=== PATIENT | male | born 1955 | race Two or more races ===

== ENCOUNTER 2023-01-25 07:56 | Inpatient (IN) | payer MEDICARE, OTHER ==
[~2023-01-25] VITALS: Ht 167.6 cm; Wt 66.4 kg
[2023-01-25 08:41] LABS: Basophils # (auto) 0 10 ^3/uL (0-0.2); Basophils % (auto) 0.6 % (0.0-2.0); Eosinophils # (auto) 0.1 10 ^3/uL (0-0.8); Eosinophils % (auto) 1.6 % (0.0-7.0); Hematocrit 50.8 % (41.0-53.0); Hemoglobin 16.7 g/dL (13.5-17.5); Lymphocytes # (auto) 1.1 10 ^3/uL (0.4-5.4); Lymphocytes % (auto) 17.3 % (10.0-50.0); Mean Corpuscular Hemoglobin 29.9 pg (28.0-32.0); Mean Corpuscular Hgb Conc. 32.9 g/dL (32.0-36.0); Mean Corpuscular Volume 90.8 fL (80.0-100.0); Monocytes # (auto) 0.3 10 ^3/uL (0-1.3); Monocytes % (auto) 5.4 % (0.0-12.0); Neutrophils # (auto) 4.8 10 ^3/uL (1.6-8.6); Neutrophils % (auto) 75.1 % (37.0-80.0); Nucleated Red Blood Cells % 0.1 %; Red Blood Cells 5.59 10^6/uL (4.5-5.90); Red Cell Distribution Width 16.7 % (11.8-14.3); White Blood Cell 6.4 10^3/uL (4.4-10.8)
[2023-01-25 08:57] LABS: Alanine Aminotransferase 24 U/L (7-40); Alkaline Phosphatase 82 U/L (46-116); Anion Gap 7.4 (5-15); Aspartate Aminotransferase 18 U/L (13-40); BUN/Creatinine Ratio 14.7 (10.0-20.0); Bilirubin, Total 0.7 mg/dL (0.2-1.0); Blood Urea Nitrogen 11 mg/dL (9-23); Calcium 9.3 mg/dL (8.5-10.1); Carbon Dioxide 25.6 mmol/L (20-30); Chloride 103 mmol/L (98-107); Glucose 212 mg/dL (74-106); Potassium 4.2 mmol/L (3.5-5.1); Sodium 136 mmol/L (136-145); Total Protein 6.5 g/dL (5.7-8.2)
[2023-01-25 09:25] LABS: Urine Bacteria NONE SEEN /hpf (None Seen); Urine Blood Negative /uL (Negative); Urine Clarity Clear (Clear); Urine Color Yellow (Yellow); Urine Mucus FEW (None Seen); Urine Protein, UAD Negative (Negative); Urine Specific Gravity 1.014 (1.001-1.035); Urine WBC 1 /hpf (0 - 3)
[2023-01-25] MEDS ORDERED: DEXTROSE (50%) 50ML SYRG IV PRN (14:30)
[2023-01-25] MEDS ORDERED: MORPHINE SULFATE INJ 2 MG/ml SYRG IV PRN (14:30)
[2023-01-25] MEDS ORDERED: NITROGLYCERIN 0.4 MG SL TAB SL PRN (14:30)
[2023-01-25 14:31] VITALS: PULSE 84; RESP 18; O2SAT 97
[2023-01-25 15:48] LABS: Amphetamine Screen, Urine Neg (NEGATIVE); Benzodiazephine Screen, Urine Neg (NEGATIVE)
[2023-01-25 15:49] LABS: Barbiturate Scree,Urine Neg (NEGATIVE); Cannabinoid Screen, Urine Pos (NEGATIVE); Cocaine Screen, Urine Neg (NEGATIVE); Opiate Scree,Urine Neg (NEGATIVE); Phencyclidine Screen, Urine Neg (NEGATIVE)
[2023-01-25] MEDS: ACCU-CHEK COMFORT CURVE STRIP VI SCH ×2 (17:01→21:56)
[2023-01-25] MEDS: InsuLIN REG 1unit/0.01ml Soln (100units/ml) SC SCH ×2 (17:01→21:56)
[2023-01-25 19:40] VITALS: PULSE 88; RESP 16; O2SAT 98
[2023-01-25] MEDS: SODIUM CHLOR 0.9% PF (SALINE LOCK) 10ML VIAL/SYR IV SCH (21:38)
[2023-01-26] MEDS: InsuLIN REG 1unit/0.01ml Soln (100units/ml) SC SCH (06:08)
[2023-01-26] MEDS: ACCU-CHEK COMFORT CURVE STRIP VI SCH (06:08)
[2023-01-26] MEDS: SODIUM CHLOR 0.9% PF (SALINE LOCK) 10ML VIAL/SYR IV SCH (06:08)
[2023-01-26 07:03] LABS: Chloride 105 mmol/L (98-107); Potassium 3.9 mmol/L (3.5-5.1); Sodium 136 mmol/L (136-145)
[2023-01-26 07:06] LABS: Basophils # (auto) 0 10 ^3/uL (0-0.2); Basophils % (auto) 0.6 % (0.0-2.0); Eosinophils # (auto) 0.1 10 ^3/uL (0-0.8); Eosinophils % (auto) 2.6 % (0.0-7.0); Hemoglobin 15.9 g/dL (13.5-17.5); Mean Corpuscular Hemoglobin 30.3 pg (28.0-32.0); Mean Corpuscular Hgb Conc. 33.9 g/dL (32.0-36.0); Mean Corpuscular Volume 89.2 fL (80.0-100.0); Monocytes # (auto) 0.4 10 ^3/uL (0-1.3); Monocytes % (auto) 8.2 % (0.0-12.0); Neutrophils # (auto) 3.5 10 ^3/uL (1.6-8.6); Neutrophils % (auto) 68.6 % (37.0-80.0); Nucleated Red Blood Cells % 0.1 %; Red Blood Cells 5.26 10^6/uL (4.5-5.90); Red Cell Distribution Width 16.6 % (11.8-14.3); White Blood Cell 5.1 10^3/uL (4.4-10.8)
[2023-01-26 07:09] LABS: BUN/Creatinine Ratio 11.3 (10.0-20.0); Blood Urea Nitrogen 7 mg/dL (9-23)
[2023-01-26 07:10] LABS: Glucose 108 mg/dL (74-106)
[2023-01-26 10:29] VITALS: BP 116/71; PULSE 62; RESP 16; TEMP 97.9; O2SAT 100
[2023-01-26] MEDS ORDERED: INSU100I4 SC (11:01)
[2023-01-26] MEDS ORDERED: PANT40T PO (11:01)
[2023-01-26] MEDS ORDERED: DICY20TA PO (11:01)
[2023-01-26] MEDS ORDERED: HYDR1TAB97 PO (11:01)
[2023-01-26] MEDS ORDERED: ONDA-180 PO (11:01)
[2023-01-26] MEDS ORDERED: OLAN1TAB7 PO (11:01)
[2023-01-26] MEDS ORDERED: LIDO2.5C3 (11:01)
[2023-01-26] MEDS ORDERED: METF-1145 PO (11:01)
[2023-01-26] MEDS ORDERED: GAB100C PO (11:01)
[2023-01-26] MEDS ORDERED: ATOR40TA52 PO (11:01)
[2023-01-26] MEDS ORDERED: DEX4T PO (11:01)
[2023-01-26] MEDS ORDERED: CHL12OR MT (11:01)
[2023-01-26] MEDS ORDERED: DIPH1CHW2 PO (11:06)
[2023-01-26] MEDS ORDERED: DOCU-94 PO (11:06)
[2023-01-26] MEDS ORDERED: PROC10TA6 PO (11:07)
== END 2023-01-26 11:56 | disposition left against medical advice (07) | DRG 292 ==
LOC: ER 07:56 → TELE 14:33 → TELE-WESTW 01-26 09:50
PROVIDERS: ADMIT Internal Medicine Pulmonary Disease; ATTEND Internal Medicine Pulmonary Disease
DX: I50.41 Acute combined systolic (congestive) and diastolic (congestive) heart failure (principal); C18.0 Malignant neoplasm of cecum; C78.00 Secondary malignant neoplasm of unspecified lung; C78.7 Secondary malignant neoplasm of liver and intrahepatic bile duct; J44.9 Chronic obstructive pulmonary disease, unspecified; Z53.29 Procedure and treatment not carried out because of patient's decision for other reasons; E11.9 Type 2 diabetes mellitus without complications; T46.6X5A Adverse effect of antihyperlipidemic and antiarteriosclerotic drugs, initial encounter; Y92.89 Other specified places as the place of occurrence of the external cause; F12.90 Cannabis use, unspecified, uncomplicated; R91.1 Solitary pulmonary nodule
CPT/HCPCS: 36415; 71045; 71275; 80048; 80053; 80307; 81001; 82962; 83036; 83880; 84484; 85025; 85379; 93005; 93970; G0378; J1815